=== PATIENT | female | born 1985 | race American Indian/Alaskan Native ===

== ENCOUNTER 2018-03-27 15:21 | Emergency (ER) | payer OTHER, SELFPAY ==
[2018-03-27 15:26] VITALS: BP 131/99; PULSE 89; RESP 20; TEMP 36.8; O2SAT 100; BMI 27.4
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
[2018-03-27 16:37] VITALS: BP 124/83; PULSE 84; RESP 14; O2SAT 91
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
[2018-03-27 17:32] VITALS: BP 128/86; PULSE 89; O2SAT 99
[2018-03-27 18:00] VITALS: BP 119/93; PULSE 87; RESP 20; O2SAT 99
[2018-03-27] MEDS: ACETAMINOPHEN 325 MG TABLET 975 MG PO (18:06)
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
[2018-03-27] MEDS: TRAMADOL 50 MG PREPACK 1 BOTTLE MISC (18:35)
[2018-03-27 18:43] VITALS: BP 119/93
== END 2018-03-27 18:40 | disposition home or self-care (01) ==
PROVIDERS: Emergency Provider Emergency Medicine
DX: S06.0X9A Concussion with loss of consciousness of unspecified duration, initial encounter (principal); Y09 Assault by unspecified means
CPT/HCPCS: 70450; 70486; 72125; 99283; 99284